=== PATIENT | female | born 2000 | race American Indian/Alaskan Native ===

== ENCOUNTER 2021-06-20 15:13 | Emergency (ER) | payer MEDICAID ==
[2021-06-20 15:30] VITALS: BP 99/65
--- NOTE | 2021-06-20 16:03 | XRay Report ---
XR toe(s) 2+V LT INDICATION / CLINICAL INFORMATION: injury. COMPARISON: None available. FINDINGS: BONES/JOINT(S): Mildly displaced oblique fracture of the fifth proximal phalanx. No significant degen erative changes. SOFT TISSUES: No significant abnormality. ADDITIONAL FINDINGS: None. Signer Name: Goran Becker MD Signed: 06/20/2021 3:59 PM Workstation Name: [email or web address]
--- NOTE | 2021-06-20 16:40 | Emergency Department Report ---
ED Lower Extremity HPI - General Chief Complaint: Extremity Injury, Lower Stated Complaint: LEFT FOOT BROKEN TOE Time Seen by Provider: 06/20/21 16:32 Source: patient Mode of arrival: Ambulatory Limitations: No Limitations - History of Present Illness Initial Comments: 20-year-old female presents to the ER today with complaints of left fifth toe injury. Patient states that she excellently struck her toe on the foot of a couch while running and playing with her brother. She states that this occurred about 2 weeks ago. She reports bruising, and swelling to the toe. She reports difficulty moving the toe due to pain and increased pain with weightbearing and ambulation. She denies any prior injury or fractures to that foot or toe in the past. MD Complaint: other (Left toe injury ) -: Sudden - Related Data Previous Rx's Medication Instructions Recorded Last Taken Type Acetaminophen/Codeine [Tylenol 1 tab PO Q6H PRN #12 tab 06/20/21 Unknown Rx /Codeine # 3 tab] Allergies Allergy/AdvReac Type Severity Reaction Status Date / Time aspirin Allergy Angioedema Verified 06/20/21 15:29 ED Review of Systems ROS: Stated complaint: LEFT FOOT BROKEN TOE Other details as noted in HPI Comment: All other systems reviewed and negative Constitutional: denies: chills, fever Eyes: denies: eye pain, eye discharge, vision change ENT: denies: ear pain, throat pain Cardiovascular: denies: chest pain, palpitations Endocrine: no symptoms reported Musculoskeletal: joint swelling, arthralgia Skin: denies: rash, lesions, change in hair/nails, pruritus Neurological: denies: headache, weakness, numbness, paresthesias, confusion, abnormal gait, vertigo Psychiatric: denies: anxiety, depression, auditory hallucinations, visual hallucinations, suicidal thoughts Hematological/Lymphatic: denies: easy bleeding, easy bruising ED Past Medical Hx - Past Medical History Previous Medical History?: No - Surgical History Past Surgical History?: No - Medications Home Medications: Home Medications Medication Instructions Recorded Confirmed Last Taken Type Acetaminophen/Codeine [Tylenol 1 tab PO Q6H PRN #12 tab 06/20/21 Unknown Rx /Codeine # 3 tab] ED Physical Exam - General Limitations: No Limitations General appearance: alert, in no apparent distress - Head Head exam: Present: atraumatic, normocephalic, normal inspection - Eye Eye exam: Present: normal appearance, PERRL, EOMI Pupils: Present: normal accommodation - Neck Neck exam: Present: normal inspection, full ROM - Respiratory Respiratory exam: Absent: respiratory distress - Cardiovascular Cardiovascular Exam: Present: regular rate - Expanded Lower Extremity Exam Left Foot/Toe exam: Present: tenderness (severe ttp left 5th toe), swelling (mild left 5th toe ), ecchymosis (Mild left 5th toe ). Absent: abrasion, laceration, deformity, crepidus, dislocation, erythema, amputation, puncture wound, foreign body, calcaneal tenderness, tenderness at base of 5th metatarsal, nail avulsion, subungual hematoma Neuro vascular tendon exam: Present: no vascular compromise. Absent: pulse deficit, abnormal cap refill, motor deficit, sensory deficit, tendon deficit Gait: Positive: not tested/not observed (due to patient's pain and discomfort) - Neurological Exam Neurological exam: Present: alert, oriented X3, CN II-XII intact - Psychiatric Psychiatric exam: Present: normal affect, normal mood - Skin Skin exam: Present: intact ED Course Vital Signs 06/20/21 15:28 Temperature 98.3 F Pulse Rate 80 Respiratory 18 Rate Blood Pressure 99/65 O2 Sat by Pulse 100 Oximetry ED Lower Extremity MDM - Radiology Data Radiology results: report reviewed Patient: CATARINA ASHER MR#: [id number] : 2000 Acct:[id number] Age/Sex: 20 / F ADM Date: 06/20/21 Loc: ED Attending Dr: Ordering Physician: DAMI FERGUSON MD Date of Service: 06/20/21 Procedure(s): XR toe(s) 2+V LT Accession Number(s): [id number] cc: ED MD MARTY Fluoro Time In Minutes: XR toe(s) 2+V LT INDICATION / CLINICAL INFORMATION: injury. COMPARISON: None available. FINDINGS: BONES/JOINT(S): Mildly displaced oblique fracture of the fifth proximal phalanx. No significant degenerative changes. SOFT TISSUES: No significant abnormality. ADDITIONAL FINDINGS: None. Signer Name: Goran Becker MD Signed: 06/20/2021 3:59 PM Workstation Name: [id number] Transcribed By: ELY Dictated By: Goran Becker MD Electronically Authenticated By: Goran Becker MD Signed Date/Time: 06/20/211558 DD/ 57 TD/TT: - Medical Decision Making X-ray of left foot reviewed and shows Mildly displaced oblique fracture of the fifth proximal phalanx. Discussed x-ray results with patient and mom. Gregory tape applied, and patient placed in postop shoe and given crutches. Discussed with patient and mom importance of following up with school librarian for further evaluation and treatment. They both expressed understanding of instructions and agree with plan. Patient stable at time of discharge. Critical care attestation.: If time is entered above; I have spent that time in minutes in the direct care of this critically ill patient, excluding procedure time. ED Disposition Clinical Impression: Toe fracture, left Disposition: DC-01 TO HOME OR SELFCARE Is pt being admited?: No Does the pt Need Aspirin: No Condition: Stable Instructions: Toe Fracture, [id number], How to Gregory Tape Additional Instructions: You can change the gregory tape when you shower but re reapply after you shower. Use the postop shoe as instructed and use the crutches to help ambulate. Elevate your leg as often as possible. You can apply ice to help with pain and swelling. Take the Tylenol threes as prescribed to help with pain. Follow-up closely with the school librarian in the next 3 to 5 days. Return to the ER if your symptoms changes or worsens in any way. Prescriptions: Acetaminophen/Codeine [Tylenol /Codeine # 3 tab] 1 tab PO Q6H PRN #12 tab PRN Reason: Pain Referrals: IRA ANGELES DPM [Staff Physician] - 3-5 Days Forms: Work/School Release Form(ED) Time of Disposition: 16:54
[2021-06-20] MEDS ORDERED: ACETAMINOPHEN 325 MG TAB PO ONE (16:47)
== END 2021-06-20 17:32 | disposition home or self-care (01) ==
LOC: ED 15:13
DX: S92.512A Displaced fracture of proximal phalanx of left lesser toe(s), initial encounter for closed fracture (principal); Z79.899 Other long term (current) drug therapy; Z88.6 Allergy status to analgesic agent; X58.XXXA Exposure to other specified factors, initial encounter; Y93.89 Activity, other specified; Y92.89 Other specified places as the place of occurrence of the external cause; Y99.8 Other external cause status
CPT/HCPCS: 99283